=== PATIENT | female | born 1945 | race African-American/Black ===

== ENCOUNTER 2019-01-11 00:31 | Observation (INO) | payer MEDICARE ==
[2019-01-11] MEDS ORDERED: Meclizine HCl 25 MG TAB ONE (00:56)
[2019-01-11 01:12] LABS: #Basophils 0.1 thou/uL (0.0-0.2); #Lymphocytes 1.3 thou/uL (1.20-3.40); #Monocytes 0.5 thou/uL (0.11-0.59); #Neutrophils 7.2 thou/uL (1.40-6.50); %Basophils 0.6 % (0.0-1.0); %Eosinophils 0.4 % (0.0-10.0); %Lymphocytes 14.1 % (21.0-51.0); %Monocytes 5.6 % (0.0-10.0); %Neutrophils 79.2 % (42.0-75.0); Hemoglobin 14.3 g/dL (12.0-16.0); Mean Corpuscular HGB CONC 33.9 g/dL (32.0-36.0); Mean Corpuscular Volume 91.2 fL (78.0-98.0); Mean Platelet Volume 8.1 fL (7.4-10.4); Platelet Count 263 thou/uL (130-400); RBC Distribution Width 12.8 % (11.5-14.5)
[2019-01-11 01:26] LABS: ALT (SGPT) 9 U/L (8-55); AST (SGOT) 16 U/L (5-34); Albumin 3.9 g/dL (3.4-4.8); Alkaline Phosphatase 77 U/L (40-150); Anion Gap 18 mmol/L (10-20); BUN (Urea Nitrogen) 17 mg/dL (9.8-20.1); Bilirubin, Total 0.3 mg/dL (0.2-1.2); Calc. Creatinine Clearance 0 mL/min (70-130); Calcium 9.9 mg/dL (7.8-10.44); Carbon Dioxide 20 mmol/L (23-31); Chloride 103 mmol/L (98-107); Estimated GFR-MDRD 63; Globulin 3.4 g/dL (2.4-3.5); Glucose 139 mg/dL (83-110); Potassium 3.4 mmol/L (3.5-5.1); Protein, Total 7.3 g/dL (6.0-8.3); Sodium 138 mmol/L (136-145)
[2019-01-11] MEDS ORDERED: Diazepam 5 MG TAB ONE (02:56)
[2019-01-11] MEDS ORDERED: Ondansetron PF 4 MG/2 ML Vial IVP PRN ×2 (05:18→09:28)
[2019-01-11] MEDS ORDERED: Ondansetron ODT 4 MG TAB SL PRN (05:18)
[2019-01-11] MEDS ORDERED: Acetaminophen 325 MG TAB PO PRN ×2 (05:18→09:28)
--- NOTE | 2019-01-11 07:57 | CT ---
PRELIMINARY REPORT/[facility]/EMERGENCY AFTER HOURS PROCEDURE EXAM: CT Head Without Contrast EXAM DATE/TIME: 01/11/2019 1:17 AM CLINICAL HISTORY: 73 years old, female; Dizziness; Patient HX: Er 13. 37 year old female presents to ED C/O nonproducti ve cough x9 days. Reports feeling SOB and vomiting after coughing. Reports right sided upper back beti n started at that time. Reports subjective fever. TECHNIQUE: Imaging protocol: Computed tomography of the head without contrast. COMPARISON: No relevant prior studies available. FINDINGS: Brain: Diffuse cerebral age related volume loss and patchy low attenuation in the white matter compat ible with chronic small vessel ischemic disease. No midline shift, mass, fluid collection, or evidenc e of hemorrhage. Left thalamic chronic lacunar infarct. Ventricles: Ventricular enlargement proportional to volume loss. Bones/joints: Unremarkable. No acute fracture. Sinuses: Visualized sinuses are unremarkable. No fluid levels. Mastoid air cells: Visualized mastoid air cells are well aerated. No mastoid effusion. Soft tissues: Unremarkable. IMPRESSION: Age related changes, no acute intracranial abnormality. Thank you for allowing us to participate in the care of your patient. Dictated and Authenticated by: Shan Grey MD 01/11/2019 1:35 AM Central Time ([place] & [place]) FINAL REPORT CT BRAIN WITHOUT CONTRAST: FINDINGS: No acute intracranial abnormality is demonstrated. There is moderate chronic small vessel white natalie er ischemic change. I agree with the preliminary report provided. CODE QA POS:
[2019-01-11] MEDS ORDERED: Potassium Chloride 20 MEQ TAB PO SCH (09:15)
[2019-01-11] MEDS ORDERED: Ondansetron ODT 4 MG TAB PO PRN (09:28)
[2019-01-11] MEDS ORDERED: Acetaminophen 650 MG Suppository PR PRN (09:28)
--- NOTE | 2019-01-11 09:39 | PDOC.HHP ---
Hospitalist HPI - History of Present Illness Dizziness/Vomiting History of Present Illness: Patient states she woke up suddenly around 10pm yesterday evening with ringing in her left ear and dizziness, she states "the room was wobbly" and after sitting up her symptoms worsened. She then began to vomit excessively. She contacted her names who had a scanlon to get in her home since she was unable to stand up and get to the door. On her way to the ED she was given Aspirin and Zofran by EMS. Patient states she felt better after medicine was given in the ER. Denies any associated headaches, blurred vision, slurred speech or extremity weakness/numbness. No recent fevers or chills. No chest pain but reported feeling a "wave" in her chest. No facial drooping or numbness. Patient continues to feel slightly dizzy when walking but has been able to walk to the bathroom. Reports having her left ear cleaned out in the ED due to cerumen impaction. She used to have this done frequently but due to complication with infection 1.5 years ago she stopped going. ED Course: Given Valium and Meclizine. Reported to have left ear irrigation prior to suctioning with multiple unsuccessful attempts. Eventuall she had partial removal of cerumen. No clear visualization of left TM. CT Brain was done and showed no acute intracranial abnormalities. There was moderate chronic small vessel white matter ischemic changes. Labs unremarkable and labs notable for low K+ of 3.4. Otherwise unremarkable. Hospitalist ROS - Review of Systems Constitutional: reports: other (Fatigued from being up since last night). denies: fever, chills, sweats, weakness, malaise Eyes: denies: pain, vision change, conjunctivae inflammation, eyelid inflammation, redness, other ENT: reports: other (Tinnitus to left ear). denies: ear pain, ear discharge, nose pain, nose discharge, nose congestion, mouth pain, mouth swelling, throat pain, throat swelling Respiratory: reports: cough (clear sputum since this am). denies: dry, shortness of breath, hemoptysis, SOB with excertion, pleuritic pain, sputum, wheezing, other Cardiovascular: reports: palpitations. denies: chest pain, orthopnea, paroxysmal noc. dyspnea, edema, light headedness, other Gastrointestinal: reports: vomitting. denies: nausea, abdominal pain, diarrhea , constipation, melena, hematochezia (has resolved, no further vomiting this arriving to ED.), other Genitourinary: reports: frequency (states due to drinking water often). denies : dysuria, incontinence, hematuria, retention, other Musculoskeletal: denies: neck pain, shoulder pain, arm pain, back pain, hand pain, leg pain, foot pain, other Skin: denies: rash, lesions, magda, bruising, other Neurological: reports: other (Dizziness, slightly improved.). denies: weakness , numbness, incoordination, change in speech, confusion, seizures Hospitalist History - Past Medical History Source: patient Cardiac: reports: HTN ENT: reports: Other (Chronic left ear cerumen impaction) - Exam General Appearance: NAD, awake alert Eye: PERRL, anicteric sclera ENT: normocephalic atraumatic, no oropharyngeal lesions, moist mucosa Neck: supple, symmetric, no lymphadenopathy Heart: RRR, murmur present Respiratory: CTAB, no wheezes, no rales, no ronchi, normal chest expansion, no tachypnea Gastrointestinal: soft, non-tender, non-distended, normal bowel sounds, no palpable masses, no guarding, no rigidity Extremeties - other findings: trace edema Skin: normal turgor, no lesions, no rashes Neurological: CN's grossly intact, normal sensation to touch, no weakness, no focal deficits Musculoskeletal: normal tone, normal strength, no muscle wasting Psychiatric: normal affect, normal behavior, A&O x 3 Hospitalist Results - Labs Result Diagrams: 01/11/19 00:52 01/11/19 00:52 Lab results: WBC 9.0 thou/uL (4.8-10.8) 01/11/19 00:52 Hgb 14.3 g/dL (12.0-16.0) 01/11/19 00:52 Hct 42.0 % (36.0-47.0) 01/11/19 00:52 MCV 91.2 fL (78.0-98.0) 01/11/19 00:52 Plt Count 263 thou/uL (130-400) 01/11/19 00:52 Neutrophils % 79.2 % (42.0-75.0) H 01/11/19 00:52 Sodium 138 mmol/L (136-145) 01/11/19 00:52 Potassium 3.4 mmol/L (3.5-5.1) L 01/11/19 00:52 Chloride 103 mmol/L (98-107) 01/11/19 00:52 Carbon Dioxide 20 mmol/L (23-31) L 01/11/19 00:52 BUN 17 mg/dL (9.8-20.1) 01/11/19 00:52 Creatinine 1.04 mg/dL (0.6-1.1) 01/11/19 00:52 Glucose 139 mg/dL (83-110) H 01/11/19 00:52 Calcium 9.9 mg/dL (7.8-10.44) 01/11/19 00:52 Total Bilirubin 0.3 mg/dL (0.2-1.2) 01/11/19 00:52 AST 16 U/L (5-34) 01/11/19 00:52 ALT 9 U/L (8-55) 01/11/19 00:52 Alkaline Phosphatase 77 U/L (40-150) 01/11/19 00:52 Troponin I Less than 0.010 ng/mL (< 0.028) 01/11/19 00:52 Serum Total Protein 7.3 g/dL (6.0-8.3) 01/11/19 00:52 Albumin 3.9 g/dL (3.4-4.8) 01/11/19 00:52 - EKG Interpretation EKG: HR 67, first degree AV block. - Radiology Interpretation CT scan - head Status: report reviewed by az Hospitalist H&P A/P - Problem (1) Nausea & vomiting Code(s): R11.2 - NAUSEA WITH VOMITING, UNSPECIFIED Status: Resolved (2) Hypokalemia Code(s): E87.6 - HYPOKALEMIA Status: Acute (3) Dizziness Code(s): R42 - DIZZINESS AND GIDDINESS Status: Acute (4) Tinnitus, left ear Code(s): H93.12 - TINNITUS, LEFT EAR Status: Acute (5) Impacted cerumen, left ear Code(s): H61.22 - IMPACTED CERUMEN, LEFT EAR Status: Chronic (6) Heart murmur Code(s): R01.1 - CARDIAC MURMUR, UNSPECIFIED Status: Acute (7) Hypertension Code(s): I10 - ESSENTIAL (PRIMARY) HYPERTENSION Status: Chronic - Plan Plan: Continue stroke work-up. Neuro consult placed. Further imaging with CTA Head & Neck, Brain MRI and Echo. Given ASA by EMS, will continue ASA 81 mg and start statin. Continue Meclizine. BNP and Mg+ added on to labs. Fasting lipid panel tmrw AM. K+ replaced, continue to monitor. CXR and UA/UCx. Walking program. Resume home medications for HTN and monitor BP. Will discuss with attending for further recommendations. Advance Care Planning - Problem (1) Nausea & vomiting Status: Resolved Code(s): R11.2 - NAUSEA WITH VOMITING, UNSPECIFIED (2) Hypokalemia Status: Acute Code(s): E87.6 - HYPOKALEMIA (3) Dizziness Status: Acute Code(s): R42 - DIZZINESS AND GIDDINESS (4) Tinnitus, left ear Status: Acute Code(s): H93.12 - TINNITUS, LEFT EAR (5) Impacted cerumen, left ear Status: Chronic Code(s): H61.22 - IMPACTED CERUMEN, LEFT EAR (6) Heart murmur Status: Acute Code(s): R01.1 - CARDIAC MURMUR, UNSPECIFIED (7) Hypertension Status: Chronic Code(s): I10 - ESSENTIAL (PRIMARY) HYPERTENSION - Note Summary: Advanced Care Planning was discussed. The diagnosis, prognosis and goals of care were discussed. Appropriate forms and documentation to accomplish the goals of care were discussed. All questions were answered. Patient is FULL CODE. She has no family members that live near her and therefore she has appointed her neighbor/friend as her surrogate decision makers. Elyse Manzano.
--- NOTE | 2019-01-11 09:46 | RAD ---
XR Chest Pa Lat STANDARD HISTORY: Cough COMPARISON: None FINDINGS: The heart size is normal. The lungs are well expanded without focal areas of consolidation, pneumothorax or pleural effusions. There are degenerative changes in the spine. The aorta is tortuous. IMPRESSION: No radiographic evidence of acute cardiopulmonary process.
--- NOTE | 2019-01-11 10:23 | CT ---
CT angiogram of head CT angiogram of neck: 01/11/2019 COMPARISON: None HISTORY: Dizziness, nausea TECHNIQUE: Axial CT imaging at 1.25 mm intervals from vertex through lung apices with IV contrast usi CT angiogram protocol. Coronal and sagittal 3-D reformatted imaging obtained. FINDINGS: The imaged lung apices are grossly unremarkable. The retroantral and the parapharyngeal fat appears clear bilaterally. The parotid and the submandibular glands are unremarkable. Region of the tonsillar pillars, epiglottis and preepiglottic fat, hyoid bone, thyroid cartilage, cri coid cartilage, and thyroid gland appear grossly unremarkable. No lymphadenopathy is appreciated within the neck. The origin of the innominate artery, left common carotid artery, left subclavian artery, right common carotid artery, and right subclavian artery demonstrate no hemodynamically significant stenosis. There is a bovine arch noted. The common carotid artery is tortuous proximally bilaterally. On the basis of NASCET criteria, there is no hemodynamically significant stenosis involving the commo n carotid artery or the internal carotid artery on either side. The internal carotid artery demonstrates tortuosity bilaterally. Bilateral vertebral arteries are patent. The left vertebral artery is dominant. The basilar artery and its branches appear patent. Bilateral posterior cerebral arteries are patent. No saccular aneurysm, high-grade stenosis, or vascular occlusion is seen involving the posterior circ ulation. There is atherosclerotic calcification involving the cavernous carotid arteries bilaterally. The inte rnal carotid artery bifurcation appears unremarkable bilaterally as do the M1 segments bilaterally. The MCA bifurcation and the distal MCA branches appear grossly unremarkable bilaterally. Region of th e anterior communicating artery appears unremarkable as do the distal JOSÉ branches bilaterally. No saccular aneurysm high-grade stenosis or vascular occlusion is seen involving the anterior circulatio n. Review of the osseous structures demonstrates multilevel cervical spine degenerative change with mult ilevel disc space narrowing, anterior osteophyte formation, and bilateral facet hypertrophic change. There is no worrisome lytic or blastic bone lesion seen. IMPRESSION: Patent arterial structures of the head and neck as detailed above. Please see above discu ssion.
[2019-01-11 12:33] VITALS: BMI 40.4
[2019-01-11] MEDS: Sodium Chloride 0.9% 1,000 ML IV SCH (13:03)
[2019-01-11 13:25] LABS: Bilirubin Negative (Negative); Blood, Urine Negative (Negative); Clarity Clear (Clear); Glucose, Urine (Dipstick) Normal (Negative); Leukocyte Negative Leu/uL (Negative); Nitrite Negative (Negative); Protein, Urine (Dipstick) Negative (Neg-Trace); RBC/HPF 0-3 HPF (0-3); Squamous Epithelial 0-3 HPF (0-3); Urobilinogen Normal mg/dL (Less than 2); WBC/HPF 0-3 HPF (0-3)
[2019-01-11 13:28] LABS: Bacteria/HPF 1+ HPF (None Seen)
[2019-01-11 13:29] LABS: Urine Culture Reflex No No
--- NOTE | 2019-01-11 14:12 | MRI ---
MRI OF BRAIN NONCONTRAST: 01/11/19 INDICATION: CVA, TIA. FINDINGS: There is no evidence of acute territorial infarction, mass effect, or midline shift. No ventriculomeg lui. There is scattered foci of susceptibility, small in size, intracranially. Moderate chronic ische hina disease of the periventricular white matter is present. There are dilated perivascular spaces of the bilateral basal ganglia. IMPRESSION: No acute territorial infarction or mass effect. Chronic ischemic disease. POS: C
[2019-01-11] MEDS ORDERED: ISOVUE-370 76%-LOCM 1 ML ONE (15:20)
[2019-01-11] MEDS ORDERED: Famotidine/PF 20 mg/2ml Vial SLOW IVP SCH (21:00)
[2019-01-11] MEDS: Atorvastatin Calcium 40 MG TAB PO SCH (21:25)
[2019-01-11] MEDS: Meclizine HCl 12.5 MG TAB PO PRN (21:26)
[2019-01-12 04:59] LABS: #Basophils 0.1 thou/uL (0.0-0.2); #Eosinphils 0.2 thou/uL (0.0-0.7); #Lymphocytes 1.5 thou/uL (1.20-3.40); #Monocytes 0.6 thou/uL (0.11-0.59); #Neutrophils 3.5 thou/uL (1.40-6.50); %Basophils 0.9 % (0.0-1.0); %Eosinophils 3.5 % (0.0-10.0); %Lymphocytes 25.9 % (21.0-51.0); %Neutrophils 59.8 % (42.0-75.0); Mean Corpuscular HGB CONC 32.7 g/dL (32.0-36.0); Mean Corpuscular Hemoglobin 30.4 pg (27.0-31.0); Mean Platelet Volume 7.8 fL (7.4-10.4); Platelet Count 243 thou/uL (130-400); RBC Distribution Width 12.8 % (11.5-14.5); Red Blood Cell (RBC) Count 4.26 mill/uL (4.20-5.40); White Blood Cell (WBC) Count 5.9 thou/uL (4.8-10.8)
[2019-01-12 05:14] LABS: Anion Gap 10 mmol/L (10-20); BUN (Urea Nitrogen) 20 mg/dL (9.8-20.1); Calc. Creatinine Clearance 85 mL/min (70-130); Calcium 8.9 mg/dL (7.8-10.44); Carbon Dioxide 24 mmol/L (23-31); Cardiac Risk 2.8 (Less than 4.5); Chloride 110 mmol/L (98-107); Cholesterol 190 mg/dl (< 200 Desired); Estimated GFR-MDRD 75; Glucose 79 mg/dL (83-110); HDL Cholesterol 67 mg/dL (>60 Neg Risk); LDL Cholesterol, Calculated 114 mg/dL; Potassium 4.3 mmol/L (3.5-5.1); Sodium 140 mmol/L (136-145); Triglycerides 43 mg/dL (Less than 150)
[2019-01-12] MEDS: Aspirin 81 mg Enteric Coated Tablet PO SCH (08:50)
[2019-01-12] MEDS: Famotidine 20 MG TAB PO SCH ×2 (08:51→21:17)
[2019-01-12] MEDS: Sodium Chloride 0.9% 1,000 ML IV SCH ×2 (08:51→10:54)
[2019-01-12] MEDS: Meclizine HCl 12.5 MG TAB PO PRN (08:55)
[2019-01-12] MEDS ORDERED: Scopolamine 1.5 mg/72 hour Patch TD SCH (12:00)
--- NOTE | 2019-01-12 15:20 | CON ---
DATE OF TELEMEDICINE CONSULTATION: 01/12/2019 Nurse, Ruthie. CHIEF COMPLAINT: Dizziness. HISTORY OF PRESENT ILLNESS: The patient is a 73-year-old woman, who reports she has been having some ear problems. She had wax in her left ear, which was cleared out on Tuesday. She was sleeping and woke up with loud ringing in her ears and when she was in bed and opened her eye and everything was spinning around and she threw up once and since then her symptoms have definitely subsided and then she came to the ER for these symptoms. She did not experience any weakness or numbness or vision problems other than everything spinning around during this event, which occurred on Tuesday night. The patient is currently comfortable and no new events have occurred since admission. PREVIOUS MEDICAL HISTORY: The patient has history of hypertension and plantar fasciitis. Otherwise, she is well. She has had prior history of ear infection and wax buildup in the inner ears. PAST SURGICAL HISTORY: None. PSYCHIATRIC HISTORY: None. CURRENT MEDICATIONS: At home, she takes antihypertensive, mainly atenolol, hydralazine, hydrochlorothiazide. FAMILY HISTORY: Sister at 79. She had CVA. The patient has adopted children and no biological children. REVIEW OF SYSTEMS: PULMONARY: Negative for cough or shortness of breath GI: Negative for nausea, vomiting, or diarrhea. HEMATOLOGICAL: Negative for any bleeding, diathesis, or anemia. DERMATOLOGICAL: Negative for skin rash. NEUROLOGICAL: Positive for dizziness. ENT positive for ear problems with tinnitus dizziness. LABORATORY WORKUP: White count is 5.9, hemoglobin 13, hematocrit 39.6, platelet count 243. Chemistry; sodium 140, potassium 4.3, chloride 110, bicarb 24, BUN 20, creatinine 0.89. Lactic profile is within normal limits. Glucose 79. Her MRI of the brain did not show any acute stroke. She does have chronic ischemic disease and CT angiogram of the head and neck area did not reveal any hemodynamically significant stenosis and patent vertebral arteries, basilar artery, and no aneurysm was noted. PHYSICAL EXAMINATION: VITAL SIGNS: Temperature 97.5, pulse 60, respiratory rate 18, O2 sats 99, blood pressure 127/74. GENERAL APPEARANCE: Well-built, well-nourished woman, who is comfortable. CHEST: Clear vesicular breathing. Cardiovascular: S1 and S2 heard. No murmurs. ABDOMEN: Soft. NEUROLOGICAL: Higher intellectual functions normal, orientation to time, place , and person. Cranial nerves 2 through 12. Normal extraocular movements. Pupils are 2 mm, reactive bilaterally. Tongue midline. No atrophy noted. Normal hearing to finger rub bilaterally. Normal facial sensation bilaterally and motor examination bulk normal, tone normal. Strength 5/5 in iliopsoas, hamstrings, quadriceps, ankle dorsiflexion, plantar flexion, deltoid, biceps, triceps, wrist extension and flexion, finger extension and flexion bilaterally. Sensory normal to touch bilaterally. Cerebellar, normal [id number] and [id number]. IMPRESSION: The patient is a 73-year-old lady, who comes to the hospital with tinnitus in the left ear plus wax buildup and vertigo. Her symptoms are much improved as of today and her current examination is normal. Her workup so far is negative for acute stroke or any stenotic intracranial or extracerebral arteries. At this time based on her medical history and description of the event plus examination, this is most likely a peripheral vertigo rather than central vertigo. RECOMMENDATIONS: I added scopolamine patch to help with vertigo and I will see her as needed. She can be discharged when stable on workup. Job ID: [id number] [facility]
--- NOTE | 2019-01-12 16:38 | PDOC.HOSPP ---
- Subjective Encounter Date: 01/12/19 Encounter Time: 16:36 Subjective: Pt seen for followup re: vertigo. says she feels better, still has on and off episodes of vertigo. Scopolamine patch is helping. - Objective Vital Signs & Weight: Vital Signs (12 hours) Temp Pulse Resp BP Pulse Ox 01/12/19 15:43 97.8 F 51 L 14 137/68 99 01/12/19 11:14 97.5 F L 53 L 18 130/69 99 01/12/19 08:03 97.5 F L 60 18 127/74 99 Weight Weight 213 lb 13.574 oz I&O: 01/11/19 01/12/19 01/13/19 06:59 06:59 06:59 Intake Total 836 Output Total 600 Balance 236 Result Diagrams: 01/12/19 04:07 01/12/19 04:07 Additional Labs: Labs and MARs reviewed by me Hospitalist ROS - Review of Systems Cardiovascular: denies: chest pain, palpitations, orthopnea, paroxysmal noc. dyspnea, edema, light headedness Gastrointestinal: denies: nausea, vomitting, abdominal pain, diarrhea, constipation, melena, hematochezia Neurological: reports: other (vertigo). denies: weakness, numbness, incoordination, change in speech, confusion, seizures - Medication Medications: Active Medications Generic Name Dose Route Start Last Admin Trade Name Freq PRN Reason Stop Dose Admin Aspirin 81 mg 01/12/19 09:00 01/12/19 08:50 Ecotrin PO 81 mg DAILY CHASTITY Administration Atorvastatin Calcium 40 mg 01/11/19 21:00 01/11/19 21:25 Lipitor PO 40 mg HS CHASTITY Administration Famotidine 20 mg 01/12/19 09:00 01/12/19 08:51 Pepcid PO 20 mg BID CHASTITY Administration Sodium Chloride 1,000 mls @ 50 mls/hr 01/11/19 09:45 01/12/19 10:54 Normal Saline 0.9% IV 1,000 mls .Q20H CHASTITY Administration Meclizine HCl 12.5 mg 01/11/19 12:45 01/12/19 08:55 Antivert PO 12.5 mg TIDPRN PRN Administration Dizziness Scopolamine 1.5 mg 01/12/19 12:00 01/12/19 12:23 Transderm Scop TD 1.5 mg Q3D CHASTITY Administration Sodium Chloride 10 ml 01/11/19 09:23 01/11/19 13:03 Flush - Normal Saline IVF 10 ml PRN PRN Administration Saline Flush Sodium Chloride 10 ml 01/11/19 21:00 01/12/19 08:51 Flush - Normal Saline IVF Not Given Q12HR CHASTITY - Exam General Appearance: NAD Eye: anicteric sclera ENT: moist mucosa Neck: supple Heart: RRR Respiratory: CTAB Gastrointestinal: soft Extremities: no cyanosis Skin: no lesions Neurological: no weakness, no focal deficits Musculoskeletal: normal tone Psychiatric: normal affect Hosp A/P (1) Dizziness Code(s): R42 - DIZZINESS AND GIDDINESS Status: Acute (2) Tinnitus, left ear Code(s): H93.12 - TINNITUS, LEFT EAR Status: Acute (3) Hypertension Code(s): I10 - ESSENTIAL (PRIMARY) HYPERTENSION Status: Chronic - Plan BP controlled. Trial scopolamine patch. Pt clinically improving but afraid to go home tonight because she lives alone. Friend in room, says they can help her at home if she goes home tomorrow. Consider referral to outpt PT/dizziness and balance program.
[2019-01-12] MEDS: Atorvastatin Calcium 40 MG TAB PO SCH (21:17)
[2019-01-12] MEDS ORDERED: Milk Of Magnesia 30 ML UDCUP PO PRN (21:27)
[2019-01-13] MEDS: Aspirin 81 mg Enteric Coated Tablet PO SCH (09:02)
[2019-01-13] MEDS: Famotidine 20 MG TAB PO SCH (09:02)
[2019-01-13 12:03] VITALS: BP 138/97; TEMP 97.4
--- NOTE | 2019-01-14 04:16 | DIS ---
DATE OF ADMISSION: 01/11/2019 DATE OF DISCHARGE: 01/13/2019 DISCHARGE DIAGNOSES: 1. Benign positional vertigo. 2. Hypertension. DISCHARGE MEDICATIONS: 1. Meclizine p.r.n. 2. Norvasc. 3. Hydralazine. 4. Hydrochlorothiazide. HISTORY OF PRESENT ILLNESS: This is a 73-year-old female patient who presented to the ER on 01/11/2019 complaining of dizziness. She mentioned that she had wax in her left ear, which was cleared out on Tuesday, she was sleeping and woke up with loud ringing in her ears and when she opened her eyes, everything was spinning around. She did not experience any weakness, numbness, or visual changes. During her stay, she was seen by Neurology. She did undergo a stroke workup consisting of an MRI of the brain and a CTA of the head and neck and an echocardiogram. All these tests were negative. She was started on meclizine on an as needed basis, also a scopolamine patch. As the days progressed, she was feeling much better and today she denies any distress, denies being dizzy. She was able to walk with her cane without any difficulty. She is eager to go home. PHYSICAL EXAMINATION: GENERAL: She is awake, alert and oriented. Does not appear in distress. VITAL SIGNS: Her blood pressure is 138/97, her heart rate is 50. I did review her telemonitoring strips and she has been in this heart rate since she came in and a first-degree AV block. Pulse ox is 98% on room air. HEENT: Head is nontraumatic, normocephalic. Pupils are equal, reactive. Extraocular movements are intact. Nonicteric sclerae, with injected conjunctivae. Oral mucosa normal. Nasal mucosa normal. NECK: Supple. No adenopathy, no mass. Thyroid is not palpable. Trachea is midline. No supraclavicular adenopathy. HEART: S1, S2, regular, systolic murmur is heard. No displacement of her PMI. LUNGS: Clear to auscultation bilaterally. No wheezes or rhonchi. No crackles. ABDOMEN: Bowel sounds are positive, nontender abdomen. No hepatosplenomegaly. EXTREMITIES: No lower extremity edema. No cyanosis noted on exam. NEUROLOGIC: Cranial nerves 2 through 12 within normal limits. Normal motor function. Normal sensory function. Normal reflexes. LABORATORY DATA: Blood work from yesterday reviewed. Found to be within normal limits. The patient has been having bradycardia since she came in. She has been off her atenolol and hydralazine. On EKG, she has first-degree AV block. I will discharge her on Norvasc instead of atenolol. I will advise her to follow up with her primary care physician within a week, to return to the ER if she feels this again. More than 30 minutes was spent to discharge this patient. Job ID: [id number]
== END 2019-01-13 14:27 | disposition home or self-care (01) ==
LOC: ERS 00:31 → ERHOLD 03:02 → 2SW 11:27
PROVIDERS: ADMIT Internal Medicine; ATTEND Internal Medicine
DX: H81.10 Benign paroxysmal vertigo, unspecified ear (principal); E87.6 Hypokalemia; H61.22 Impacted cerumen, left ear; H93.12 Tinnitus, left ear; I10 Essential (primary) hypertension; I44.0 Atrioventricular block, first degree; Z79.899 Other long term (current) drug therapy
CPT/HCPCS: 69210; 70450; 70496; 70498; 70551; 71046; 80048; 80053; 80061; 81001; 83735; 83880; 84484; 85025 ×2; 93005; 93306; 96360; 96361 ×3; 97139 ×3; 99285; G0378 ×4; 36415; J8597; Q9966